=== PATIENT | male | born 1940 | race Caucasian/White ===

== ENCOUNTER → 2016-11-22 | Outpatient (CLI) | payer OTHER | LOC: FIMAGING 12:43 | PROVIDERS: ATTEND Family Medicine Sports Medicine | DX: C61 Malignant neoplasm of prostate (principal); J32.0 Chronic maxillary sinusitis ==

== ENCOUNTER → 2018-09-19 | Outpatient (CLI) | payer OTHER, MEDICARE | LOC: CIMAGING 11:37 | PROVIDERS: ATTEND Family Medicine Sports Medicine | DX: C61 Malignant neoplasm of prostate (principal); G31.9 Degenerative disease of nervous system, unspecified; I67.2 Cerebral atherosclerosis; M84.88 Other disorders of continuity of bone, other site | CPT/HCPCS: 70450-PO ==